=== PATIENT | male | born 1960 | race Caucasian/White ===

== ENCOUNTER 2019-10-12 04:59 | Day surgery (SDC) | payer OTHER ==
[2019-10-11 13:14] VITALS: BMI 29.8
[2019-10-12 10:14] VITALS: TEMP 97.5
[2019-10-12 10:57] VITALS: BP 158/91; PULSE 55
--- NOTE | 2019-10-13 16:38 | PATH ---
Surgical Pathology Report Patient Name: JOSE ARAUJO [facility]. Rec. #: [id number] /Age/Gender: 1960 (Age: 59) / M Account: [id number] Location: U-ENDOSCOPY Taken: 10/12/2019 Received: 10/12/2019 Reported: 10/13/2019 Physicians: Joseph Hernandez M.D. Specimen(s) Received HEPATIC FLEXURE POLYPS Clinical History History of adenomas Postoperative diagnosis: Colon polyps Final Diagnosis COLON, HEPATIC FLEXURE, POLYPS, BIOPSY: TUBULAR ADENOMA(S). Electronically Signed Selam Arnold M.D. Gross Description Received in formalin, labeled "polyps hepatic flexure" are 3 knox, irregular portions of soft tissue ranging from 0.1-0.3 cm. in greatest dimension. The specimens are submitted in toto in one cassette. /10/12/2019 saudi/10/12/2019
== END 2019-10-12 10:57 | disposition home or self-care (01) ==
LOC: JASU-ENDO 04:59
PROVIDERS: ATTEND Internal Medicine Gastroenterology
PROC: 0DBL8ZX Excision of Transverse Colon, Via Natural or Artificial Opening Endoscopic, Diagnostic (ICD-10-PCS; principal; 2019-10-12 08:45)
DX: Z86.010 Personal history of colon polyps (principal); D12.3 Benign neoplasm of transverse colon
CPT/HCPCS: 82962; 88305-TC

== ENCOUNTER 2021-12-06 04:18 | Day surgery (SDC) | payer OTHER ==
[2021-12-03 11:42] VITALS: BMI 30.8
[2021-12-06] MEDS ORDERED: LACTATED RINGERS SOLUTION 1,000 ML IV SCH (07:30)
[2021-12-06 07:39] VITALS: PULSE 55
[2021-12-06 09:19] VITALS: BP 123/74; RESP 15; TEMP 97.5
== END 2021-12-06 10:10 | disposition home or self-care (01) ==
LOC: JASU-ENDO 04:18
PROVIDERS: ATTEND Internal Medicine Gastroenterology
PROC: 0DBL8ZX Excision of Transverse Colon, Via Natural or Artificial Opening Endoscopic, Diagnostic (ICD-10-PCS; 2021-12-06)
PROC: 0DBN8ZX Excision of Sigmoid Colon, Via Natural or Artificial Opening Endoscopic, Diagnostic (ICD-10-PCS; 2021-12-06)
PROC: 0DBP8ZX Excision of Rectum, Via Natural or Artificial Opening Endoscopic, Diagnostic (ICD-10-PCS; 2021-12-06)
PROC: 0DBF8ZX Excision of Right Large Intestine, Via Natural or Artificial Opening Endoscopic, Diagnostic (ICD-10-PCS; principal; 2021-12-06 08:00)
DX: Z12.11 Encounter for screening for malignant neoplasm of colon (principal); D12.2 Benign neoplasm of ascending colon; D12.7 Benign neoplasm of rectosigmoid junction; D12.3 Benign neoplasm of transverse colon; E11.9 Type 2 diabetes mellitus without complications; I10 Essential (primary) hypertension; Z79.84 Long term (current) use of oral hypoglycemic drugs
CPT/HCPCS: 88305-TC

== ENCOUNTER 2023-02-13 04:28 | Day surgery (SDC) | payer OTHER ==
[2023-02-10 14:40] VITALS: BMI 30.5
[2023-02-13 07:55] VITALS: TEMP 98.6
[2023-02-13 09:39] VITALS: BP 150/80; PULSE 65; RESP 18
== END 2023-02-13 10:05 | disposition home or self-care (01) ==
LOC: JASU-ENDO 04:28
PROVIDERS: ATTEND Internal Medicine Gastroenterology
PROC: 0DBL8ZX Excision of Transverse Colon, Via Natural or Artificial Opening Endoscopic, Diagnostic (ICD-10-PCS; 2023-02-13)
PROC: 0DBP8ZX Excision of Rectum, Via Natural or Artificial Opening Endoscopic, Diagnostic (ICD-10-PCS; principal; 2023-02-13 08:30)
DX: Z12.11 Encounter for screening for malignant neoplasm of colon (principal); D12.3 Benign neoplasm of transverse colon; D12.8 Benign neoplasm of rectum; Z86.010 Personal history of colon polyps
CPT/HCPCS: 82962; 88305-TC